=== PATIENT | male | born 1985 | race African-American/Black ===

== ENCOUNTER 2016-10-03 17:26 | Emergency (ER) | payer SELFPAY ==
[~2016-10-03] VITALS: Ht 185.4 cm; Wt 95.3 kg
[2016-10-03 18:12] VITALS: BP 122/63
== END 2016-10-03 19:21 | disposition home or self-care (01) ==
LOC: ER 17:29
DX: S39.012A Strain of muscle, fascia and tendon of lower back, initial encounter (principal); S60.211A Contusion of right wrist, initial encounter; M54.2 Cervicalgia; V43.62XA Car passenger injured in collision with other type car in traffic accident, initial encounter; Y93.89 Activity, other specified; Y92.488 Other paved roadways as the place of occurrence of the external cause; Y99.8 Other external cause status
CPT/HCPCS: 99283; A4606; Z7610

== ENCOUNTER 2017-04-01 09:11 | Emergency (ER) | payer SELFPAY ==
[~2017-04-01] VITALS: Ht 185.4 cm; Wt 95.3 kg
[2017-04-01 09:14] VITALS: BP 147/85
== END 2017-04-01 10:06 | disposition home or self-care (01) ==
LOC: ER 09:13
DX: R05 Cough (principal); J45.909 Unspecified asthma, uncomplicated
CPT/HCPCS: 71020; 99284; A4606; Z7610